=== PATIENT | female | born 1995 | race Caucasian/White ===

== ENCOUNTER 2017-08-21 20:22 | Emergency (ER) | payer OTHER ==
[~2017-08-21] VITALS: Ht 162.6 cm; Wt 98.4 kg
[2017-08-21 20:27] VITALS: BP 129/80
--- NOTE | 2017-08-21 20:59 | NUR ---
PT TAKEN TO BED 4
--- NOTE | 2017-08-21 21:20 | NUR ---
21/F CAME IN W C/O DIZZINESS AND HEADACHE X 2 WEEKS. PT STATES SHE TAKES IBUPROFEN WITH REPORTS OF RELIEF BUT HEADACHE REOCCURS INTERMITTENTLY. DENIES TRAUMA/INJURY. PT DENIES PHOTOSENSITIVITY, VISUAL DISTURBANCES, DENIES N/V, FEVER AND CHILLS. DENIES PMH/RX
--- NOTE | 2017-08-21 21:21 | NUR ---
Dr. Navas evaluating patient at bedside.
[2017-08-21 21:35] VITALS: BP 139/72
--- NOTE | 2017-08-21 21:35 | NUR ---
Patient discharged with v/s stable. Written and verbal after care instructions given and explained. Patient alert, oriented and verbalized understanding of instructions. Ambulatory with steady gait. All questions addressed prior to discharge. ID band removed. Patient advised to follow up with PMD. Rx of FIORICET given. Patient educated on indication of medication including possible reaction and side effects. Opportunity to ask questions provided and answered.
== END 2017-08-21 21:35 | disposition home or self-care (01) ==
LOC: MED 20:22
DX: G44.209 Tension-type headache, unspecified, not intractable (principal)
CPT/HCPCS: 81002; 81025; 99283

== ENCOUNTER 2021-07-28 17:26 | Emergency (ER) | payer OTHER ==
[~2021-07-28] VITALS: Ht 162.6 cm; Wt 107.0 kg
[2021-07-28 17:34] VITALS: BP 155/88
--- NOTE | 2021-07-28 18:00 | NUR ---
URINE DIP WAS DONE AND URINE WAS TAKEN TO THE LAB FOR UA.
--- NOTE | 2021-07-28 18:01 | NUR ---
PATIENT IN THE ROOM AND GAWN ON.
--- NOTE | 2021-07-28 18:25 | NUR ---
DR BEACH AT BEDSIDE.
--- NOTE | 2021-07-28 19:11 | NUR ---
REPORT RECEIVED FROM COLT ZENG. TRANSFER OF CARE AT THIS TIME.
--- NOTE | 2021-07-28 19:11 | NUR ---
GAVE REPORT TO HUSSAIN TURNER
[2021-07-28] MEDS ORDERED: ONDA8TAB87 PO (19:19)
[2021-07-28] MEDS ORDERED: CIPR500T4 PO (19:19)
[2021-07-28] MEDS ORDERED: LOPE-289 PO (19:19)
[2021-07-28] MEDS ORDERED: IBUP-2213 PO (19:19)
[2021-07-28 19:43] VITALS: BP 149/72
--- NOTE | 2021-07-28 19:43 | NUR ---
Patient discharged with v/s stable. Written and verbal after care instructions given and explained. Patient alert, oriented and verbalized understanding of instructions. Ambulatory with steady gait. All questions addressed prior to discharge. ID band removed. Patient advised to follow up with PMD. Rx of CIPROFLOXACIN, IBUPROFEN, LOPERAMIDE, ZOFRAN given. Patient educated on indication of medication including possible reaction and side effects. Opportunity to ask questions provided and answered.
== END 2021-07-28 19:43 | disposition home or self-care (01) ==
LOC: MED 17:26
DX: R11.2 Nausea with vomiting, unspecified (principal); R19.7 Diarrhea, unspecified; R10.13 Epigastric pain
CPT/HCPCS: 81002; 99283

== ENCOUNTER 2022-05-01 00:35 | Emergency (ER) | payer OTHER ==
[~2022-05-01] VITALS: Ht 162.6 cm; Wt 118.4 kg
[~2022-05-01 00:35] MED LIST: CIPR500T4 PO; IBUP-2213 PO; LOPE-289 PO; ONDA8TAB87 PO
[2022-05-01 00:41] VITALS: BP 128/89
--- NOTE | 2022-05-01 01:46 | NUR ---
PT AMBULATED TO BED NO 7
[2022-05-01] MEDS ORDERED: KETOROLAC 60 MG/2 ML VIAL IM ONE (02:00)
--- NOTE | 2022-05-01 02:21 | NUR ---
26 Y/O F BIB SELF FOR FLANK AND BACK PAIN X 2 WEEKS. STATES PAIN 7/10. PAIN IS CONSTANT AND THROBBING. PT HAS NAUSEA/ DENIES V/D/F/COUGH/CHEST PAIN/ URINARY PAIN. PT IS A&O X4 WITH EVEN AND STEADY GAIT. LMP:04/06/22 RX:DENIES PMH:DENIES
[2022-05-01] MEDS ORDERED: IBUP-2213 PO (02:41)
[2022-05-01] MEDS ORDERED: ACET-8386 PO (02:41)
[2022-05-01 02:55] VITALS: BP 128/89
--- NOTE | 2022-05-01 02:55 | NUR ---
0255Patient discharged with v/s stable. Written and verbal after care instructions given and explained. Patient alert, oriented and verbalized understanding of instructions. Ambulatory with steady gait. All questions addressed prior to discharge. ID band removed. Patient advised to follow up with PMD. Rx of ibruprofen and hydrocodone/ acetametaphin given.Opportunity to ask questions provided and answered.
--- NOTE | 2022-05-01 03:34 | NUR ---
The patient's care was reviewed and supervised by Ruth Honeycutt RN.
== END 2022-05-01 02:55 | disposition home or self-care (01) ==
LOC: MED 00:35
DX: M54.50 Low back pain, unspecified (principal); Z79.899 Other long term (current) drug therapy
CPT/HCPCS: 81002; 81025; 96372; 99283; J1885